=== PATIENT | female | born 1955 | race Caucasian/White ===

== ENCOUNTER 2016-06-06 13:53 | Observation (INO) ==
[2016-06-06] MEDS ORDERED: Nitroglycerin 1 INCH/GM PACKET TP ONE (14:29)
--- NOTE | 2016-06-06 14:29 | Emergency Department Note ---
Disposition Clinical Impression: Chest pain Qualifiers: Chest pain type: unspecified Qualified Code(s): R07.9 - Chest pain, unspecified Disposition: Admitted As Inpatient Condition: Good Chest Pain HPI - General Chief Complaint: ED Chest Pain Stated Complaint: CHEST PAIN Time Seen by Provider: 06/06/16 14:19 Source: patient Mode of arrival: private vehicle Limitations: no limitations Vital Signs Reviewed: Yes Nursing Notes Reviewed: Yes - History of Present Illness HPI Narrative: Patient started this morning with a mid chest discomfort. She describes this as an ache or a burn that is a 5 on a scale of 1-10. She has not found anything that makes it better or worse. It has not been exertional. She denies any diaphoresis nausea or increased shortness of breath. She states she always has shortness of breath with her COPD and asthma. She denies any lower extremity changes but does have restless leg syndrome. She has change in medication stress. She has history of present illness past history of coronary artery disease. She relates she is still having discomfort at time of presentation. Pt complaint: chest pain Onset (ago): hour(s) (5) Duration: constant Pain Location: substernal Severity: moderate Severity scale (1-10): 5 Quality: aching, other (Burning) Pain Radiation: none Improves with: nothing Worsens with: nothing Associated symptoms: Reports: dyspnea (Normal). Denies: nausea, vomiting, diaphoresis, syncope, palpitations, fever, cough, leg swelling Treatments prior to arrival chest pain: none - Related Data Home Medications Medication Instructions Recorded Confirmed Albuterol Sulfate [Albuterol PRN PRN 12/28/14 12/28/14 Sulfate] Albuterol Sulfate [Proair HFA] 0 puff IH Q4HR 12/28/14 12/28/14 Budesonide/Formoterol 80/4.5 1 puff IH BIDR 12/28/14 12/28/14 [Symbicort] Citalopram Hydrobromide 20 mg PO DAILY 12/28/14 12/28/14 [Citalopram HBr] Estradiol [Estrace] 2 mg PO DAILY 12/28/14 12/28/14 Loratadine [Claritin] 10 mg PO DAILY 12/28/14 12/28/14 Losartan/HCTZ [Hyzaar 50/12.5] 1 each PO 12/28/14 12/28/14 Lovastatin [Altoprev] 40 mg PO 12/28/14 12/28/14 Montelukast Sodium [Singulair] 10 mg PO DAILY 12/28/14 12/28/14 Tiotropium [Spiriva] 160 mcg IH DAILY 12/28/14 12/28/14 Albuterol Sulfate [Albuterol 1 puff IH BID 06/06/16 06/06/16 Inhaler] Bupropion HCl [Wellbutrin Xl] 300 mg PO DAILY 06/06/16 06/06/16 Citalopram Hydrobromide 20 mg PO DAILY 06/06/16 06/06/16 [Citalopram HBr] Esomeprazole Magnesium [Nexium] 1 mg PO DAILY 06/06/16 06/06/16 Famotidine [Heartburn Prevention] 20 mg PO BID 06/06/16 06/06/16 Loratadine [Allergy Relief] 10 mg PO DAILY 06/06/16 06/06/16 Symbicort 160/4.5 BID 06/06/16 Topiramate [Topamax] 50 mg PO BID 06/06/16 06/06/16 Trospium Chloride 20 mg PO 06/06/16 Allergies Allergy/AdvReac Type Severity Reaction Status Date / Time aspirin Allergy Swelling Verified 12/28/14 14:07 of Lip/Tongue/Throat Penicillins [PCN] Allergy Swelling Verified 12/28/14 14:07 of Lip/Tongue/Throat All systems ED: reviewed and negative except as stated. Chest Pain PMH - Past Medical History Medical history: Reports: arthritis, asthma, COPD, GERD, hyperlipidemia, hypertension, other Surgical history: Reports: cholecystectomy, hysterectomy Psychiatric history: Reports: anxiety, depression [employer] history: Reports: other - Social History Smoking Status: Current every day smoker Alcohol use: Reports: none Drug use: Reports: none Physical Exam - General Limitations: no limitations General appearance: alert, in no apparent distress - Head Head exam: atraumatic, normocephalic, normal inspection - Eye Eye exam: Present: normal appearance, PERRL, EOMI - ENT ENT exam: normal exam, normal oropharynx, mucous membranes moist - Neck Neck exam: Present: normal inspection, full ROM, trachea midline - Chest Chest inspection: Present: normal inspection, symmetric chest wall rise - Respiratory Respiratory exam: Present: normal lung sounds bilaterally. Absent: respiratory distress, wheezes, prolonged expiratory phase - Cardiovascular Cardiovascular exam: Present: regular rate, normal rhythm, normal heart sounds. Absent: tachycardia - Abdominal Exam Abdominal exam: Present: soft, Non-Tender, normal bowel sounds. Absent: tenderness, distention, guarding, rebound, rigidity - Extremities Exam Extremities exam: Present: normal inspection, full ROM, normal capillary refill. Absent: tenderness, pedal edema - Expanded Lower Extremity Exam Neurovascular/Tendon exam: Present: normal capillary refill. Absent: motor deficit, sensory deficit, tendon deficit Gait: observed and normal - Back Exam Back exam: Present: normal inspection, full ROM. Absent: tenderness, vertebral tenderness - Neurological Exam Neurological exam: Present: alert, oriented X3, normal gait - Psychiatric Psychiatric exam: Present: normal affect, normal mood. Absent: agitated, anxious - Skin Skin exam: Present: warm, dry, intact, normal color. Absent: diaphoresis, pallor Course Course Narrative: Care is discussed with the patient and with Dr. Barger. Orders are obtained for the patient's observation and we are awaiting bed placement R facility prior to transfer to the floor. Vital Signs Temperature 98 F 06/06/16 13:56 Pulse Rate 74 06/06/16 13:56 Respiratory Rate 18 06/06/16 13:56 Blood Pressure 142/103 06/06/16 13:56 O2 Sat by Pulse Oximetry 96 06/06/16 13:56 Temperature 98.1 F 06/06/16 19:25 Pulse Rate 88 06/06/16 19:25 Respiratory Rate 18 06/06/16 19:25 Blood Pressure 150/101 06/06/16 19:25 O2 Sat by Pulse Oximetry 96 06/06/16 19:25 Oxygen Delivery Oxygen Delivery Room Air Chest Pain - Differential Diagnosis Likely: stable angina, unstable angina pectoris, atypical chest pain, chest pain - Medical Records Medical records reviewed: Yes I reviewed the patient's medical records. - Lab Data Lab results reviewed: Yes I reviewed the patient's lab results. Result diagrams: 06/06/16 14:39 06/06/16 14:45 Lab Results 06/06/16 06/06/16 06/06/16 Range/Units 14:29 14:39 14:45 WBC 8.5 (4.3-11.1) K/mcL RBC 5.23 H (3.82-4.97) M/mcL Hgb 15.2 (11.5-15.4) g/dL Hct 45.0 H (35.3-44.9) % MCV 86.0 (83.0-100.0) fL MCH 29.1 (28.0-33.3) pg MCHC 33.8 (31.6-35.5) g/dL RDW 12.6 (11.5-14.5) % Plt Count 291 (140-400) K/mcL MPV 10.2 (9.4-12.4) fL Immature Gran % 0.5 (0-4) % Seg Neutrophils % 60.4 % Lymphocytes % 29.8 % Monocytes % 6.7 % Eosinophils % 1.9 % Basophils % 0.7 % Neutrophils # 5.1 (1.6-8.9) K/mcL Lymphocytes # 2.5 (0.6-4.6) K/mcL Monocytes # 0.6 (0.0-1.3) K/mcL Eosinophils # 0.2 (0.0-0.6) K/mcL Basophils # 0.1 (0.0-0.2) K/mcL PT 10.5 (9.4-12.1) Seconds INR 1.0 APTT 28.8 (26.0-36.0) Seconds Sodium (136-145) mEq/L Potassium (3.5-4.5) mEq/L Chloride (98-109) mEq/L Carbon Dioxide (19-29) mEq/L BUN (7-20) mg/dL Creatinine (0.57-1.11) mg/dL Est GFR ( Amer) (> 60) Est GFR (Non-Af Amer) (> 60) BUN/Creatinine Ratio (6-26) Glucose (70-99) mg/dL Calculated Osmolality (280-300) Calcium (8.6-10.8) mg/dL Troponin I (0-0.03) ng/mL B-Natriuretic Peptide 20 (0-100) pg/mL 06/06/16 06/06/16 Range/Units 14:45 14:45 WBC (4.3-11.1) K/mcL RBC (3.82-4.97) M/mcL Hgb (11.5-15.4) g/dL Hct (35.3-44.9) % MCV (83.0-100.0) fL MCH (28.0-33.3) pg MCHC (31.6-35.5) g/dL RDW (11.5-14.5) % Plt Count (140-400) K/mcL MPV (9.4-12.4) fL Immature Gran % (0-4) % Seg Neutrophils % % Lymphocytes % % Monocytes % % Eosinophils % % Basophils % % Neutrophils # (1.6-8.9) K/mcL Lymphocytes # (0.6-4.6) K/mcL Monocytes # (0.0-1.3) K/mcL Eosinophils # (0.0-0.6) K/mcL Basophils # (0.0-0.2) K/mcL PT (9.4-12.1) Seconds INR APTT (26.0-36.0) Seconds Sodium 142 (136-145) mEq/L Potassium 3.5 (3.5-4.5) mEq/L Chloride 110 H (98-109) mEq/L Carbon Dioxide 21 (19-29) mEq/L BUN 12 (7-20) mg/dL Creatinine 0.83 (0.57-1.11) mg/dL Est GFR ( Amer) > 60 (> 60) Est GFR (Non-Af Amer) > 60 (> 60) BUN/Creatinine Ratio 14 (6-26) Glucose 101 H (70-99) mg/dL Calculated Osmolality 294 (280-300) Calcium 8.8 (8.6-10.8) mg/dL Troponin I 0.00 (0-0.03) ng/mL B-Natriuretic Peptide (0-100) pg/mL - EKG Data EKG attestation: Yes I reviewed and interpreted this EKG. EKG shows normal: sinus rhythm, axis, intervals, QRS complexes Rate: normal (96) T wave inversions noted in: v3, v4, v5 Interpretation: no acute changes, nonspecific ST-T wave changes
[2016-06-06 14:52] LABS: Basophils # 0.1 K/mcL (0.0-0.2); Basophils % 0.7 %; Eosinophils # 0.2 K/mcL (0.0-0.6); Eosinophils % 1.9 %; Hemoglobin 15.2 g/dL (11.5-15.4); Immature Granulocytes % 0.5 % (0-4); Lymphocytes # 2.5 K/mcL (0.6-4.6); Lymphocytes % 29.8 %; Mean Corpuscular HGB Conc 33.8 g/dL (31.6-35.5); Mean Corpuscular Hemoglobin 29.1 pg (28.0-33.3); Mean Platelet Volume 10.2 fL (9.4-12.4); Monocytes # 0.6 K/mcL (0.0-1.3); Monocytes % 6.7 %; Neutrophils # 5.1 K/mcL (1.6-8.9); Platelet Count 291 K/mcL (140-400); Red Blood Count 5.23 M/mcL (3.82-4.97); Red Cell Distribution Width 12.6 % (11.5-14.5); Segmented Neutrophils % 60.4 %
[2016-06-06 15:00] LABS: Prothrombin Time 10.5 Seconds (9.4-12.1)
[2016-06-06 15:03] LABS: Activated Partial Thrombo Time 28.8 Seconds (26.0-36.0)
[2016-06-06 15:09] LABS: BUN/Creatinine Ratio 14 (6-26); Blood Urea Nitrogen 12 mg/dL (7-20); Calcium 8.8 mg/dL (8.6-10.8); Carbon Dioxide 21 mEq/L (19-29); Chloride 110 mEq/L (98-109); Glucose 101 mg/dL (70-99); Osmolality,Calculated 294 (280-300); Potassium 3.5 mEq/L (3.5-4.5); Sodium 142 mEq/L (136-145); eGFR For African Americans > 60 (> 60); eGFR For Non-African Americans > 60 (> 60)
[2016-06-06] MEDS ORDERED: 0.9 % Sodium Chloride 1,000 ML IVC SCH (16:36)
[2016-06-06] MEDS ORDERED: Ondansetron 4 MG/2 ML VIAL IVP PRN (16:36)
[2016-06-06] MEDS ORDERED: Albuterol 2.5 MG/3 ML NEBULIZER IH PRN (16:36)
[2016-06-06] MEDS ORDERED: MOM Conc 10 ML UD.LIQ PO PRN (16:36)
[2016-06-06] MEDS ORDERED: Acetaminophen 325 MG TABLET PO PRN (16:36)
[2016-06-06] MEDS ORDERED: Ipratropium/Albuterol Neb 3 ML IH SCH (16:36)
[2016-06-06] MEDS ORDERED: Naloxone 0.4 MG/ML INJ IVP PRN (16:36)
--- NOTE | 2016-06-06 17:40 | Electrocardiograph Report ---
[address] [address] Test Date: 2016-06-06 Pat Name: Xuan Lieberman Department: [id number] Room: [facility] Gender: F Slip Filler: Francisco Javier : 1955 Requested By: Abel Mills Order Number: [id number] Reading MD: Jody Gusman Measurements Intervals [place] Rate: 96 P: 40 KS: 153 QRS: 19 QRSD: 93 T: 69 QT: 361 QTc: 414 Interpretive Statements SINUS RHYTHM WITH FREQUENT ECTOPIC PREMATURE COMPLEXES NONSPECIFIC ST \T\ T-WAVE ABNORMALITY ABNORMAL RHYTHM ECG Electronically Signed On 06-06-2016 17:39:23 EDT by Jody Gusman
--- NOTE | 2016-06-06 19:18 | Internal Med History&Physical ---
Date of Encounter: 06/06/16 Time of Encounter: 18:45 Assessment and Plan (1) Chest pain Current visit: Yes Status: Acute Etiology is not obvious. Repeat cardiac enzymes have been ordered. A chest CT will be done and a d-dimer ordered. Further workup will be done as needed. Qualifiers: Chest pain type: unspecified Qualified Code(s): R07.9 - Chest pain, unspecified (2) Hypertension Current visit: Yes Status: Chronic Continue Hyzaar. I will give a dose of Norvasc since her pressure is presently elevated. Qualifiers: Hypertension type: essential hypertension Qualified Code(s): I10 - Essential (primary) hypertension (3) COPD (chronic obstructive pulmonary disease) Current visit: Yes Status: Acute Continue Spiriva, Singulair, Symbicort, and albuterol nebs Qualifiers: COPD type: unspecified COPD Qualified Code(s): J44.9 - Chronic obstructive pulmonary disease, unspecified Internal Medicine - H&P: HPI Chief complaint: Chest pain Admitted From: Home Plans for Post Hospital Care: Home History of present illness: Ms. Lieberman is a 60 year old female who states she awakened at 0900 with discomfort in her chest. She describes it as a dull midsternal pain that seems to become more sharp when she coughed. She did not have any unusual dyspnea or frequent coughing. When it persisted for a few hours she decided to come to the emergency room. She was evaluated and admitted to [facility] floor for ongoing care needs. She states the pain has not changed in location or intensity since onset. She denies previous similar pain. Her cardiovascular history is significant for hypertension but she denies NH heart failure angina DVT or pulmonary embolus. She has occasional PACs. She denies cardiac evaluation such as stress test or heart catheter. Past Med Surg Social Fam HX - Past Medical History Medical history: arthritis, asthma, COPD, GERD, hyperlipidemia, hypertension, other Psychiatric history: anxiety, depression - Past Surgical History Surgical History: cholecystectomy, hysterectomy - Social History Smoking Status: Current every day smoker Packs per day: 1.55 Smokeless Tobacco Status: No Alcohol use: none Drug use: none Internal Medicine - H&P: Meds Albuterol Sulfate [Albuterol Sulfate] PRN PRN 12/28/14 [History] Albuterol Sulfate [Proair HFA] 0 puff IH Q4HR 12/28/14 [History] Budesonide/Formoterol 80/4.5 [Symbicort] 1 puff IH BIDR 12/28/14 [History] Citalopram Hydrobromide [Citalopram HBr] 20 mg PO DAILY 12/28/14 [History] Estradiol [Estrace] 2 mg PO DAILY 12/28/14 [History] Loratadine [Claritin] 10 mg PO DAILY 12/28/14 [History] Losartan/HCTZ [Hyzaar 50/12.5] 1 each PO 12/28/14 [History] Lovastatin [Altoprev] 40 mg PO 12/28/14 [History] Montelukast Sodium [Singulair] 10 mg PO DAILY 12/28/14 [History] Tiotropium [Spiriva] 160 mcg IH DAILY 12/28/14 [History] Albuterol Sulfate [Albuterol Inhaler] 1 puff IH BID 06/06/16 [History] Bupropion HCl [Wellbutrin Xl] 300 mg PO DAILY 06/06/16 [History] Citalopram Hydrobromide [Citalopram HBr] 20 mg PO DAILY 06/06/16 [History] Esomeprazole Magnesium [Nexium] 1 mg PO DAILY 06/06/16 [History] Famotidine [Heartburn Prevention] 20 mg PO BID 06/06/16 [History] Loratadine [Allergy Relief] 10 mg PO DAILY 06/06/16 [History] Symbicort 160/4.5 BID 06/06/16 [History] Topiramate [Topamax] 50 mg PO BID 06/06/16 [History] Trospium Chloride 20 mg PO 06/06/16 [History] Allergies aspirin Allergy (Verified 12/28/14 14:07) Swelling of Lip/Tongue/Throat Penicillins [PCN] Allergy (Verified 12/28/14 14:07) Swelling of Lip/Tongue/Throat All Systems PM: A 10-system review of systems was performed and is negative for pertinent findings except as documented above in the HPI. Review of systems: Gen.: She states her weight has decreased approximately 10 pounds the past 3 months, intentionally Cardiovascular: As per history of present illness Respiratory: She has smoked since age 11 up to 3 packs per day. She has a diagnosis COPD and had oxygen in the home at one time but it has been removed. She has not had chest CT. GI: She has had cholecystectomy. She has GERD. She denies disorders of her liver or exocrine pancreas : She has had left kidney cyst surgery. She has overactive bladder and has had ureteral stents placed in the past. Neurologic: She has restless leg syndrome. She denies large distribution strokes or seizures. Endocrine: She has hyperkalemia but denies diabetes or thyroid disease Hematology/oncology: She denies blood disorders cancers or anemia Psychiatric: She has a diagnosis of depression but denies anxiety or other mental health issues Musk skeletal: She has DJD denies gout or other bone joint or muscle disorders. - Constitutional Vitals: Temp Pulse Resp BP Pulse Ox 97.9 F 83 15 137/97 98 06/06/16 16:37 06/06/16 16:37 06/06/16 16:37 06/06/16 16:37 06/06/16 16:37 Exam: Gen.: She is a well-developed well-nourished female who appears in no severe distress at present time HEENT: Head is atraumatic normocephalic. Eyes: EOMI. There is no scleral icterus. Mouth: Mucosa is moist. Neck: Supple and nontender. There is no thyromegaly or adenopathy noted. Heart: Regular without murmurs gallops or ectopics. Lungs: No wheezes or crackles are heard. Chest: She is not tender in her chest wall to palpation Abdomen: Soft and nontender. No masses or guarding are noted. Extremities: There is no cyanosis edema or clubbing noted. Dorsalis pedis and posttibial pulses are 1-2 over 2 bilaterally. Neurologic: Mental status: She is talkative and a good historian. Cranial nerves: Smile is symmetric. Forehead wrinkles bilaterally. Tongue protrudes midline. EOMI. Motor: There is no pronator drift. Cerebellar: Finger to nose is intact bilaterally. Skin: Warm and dry Internal Med - H&P Results - Labs CBC & Chem 7: 06/06/16 14:39 06/06/16 14:45
[2016-06-06] MEDS: Benzonatate 100 MG CAPSULE PO SCH (20:30)
[2016-06-06] MEDS: Topiramate 25 MG TABLET PO SCH (20:30)
[2016-06-06] MEDS: Budesonide/Formoterol 160/4.5 MDI IH SCH (23:38)
[2016-06-07 03:49] LABS: Basophils # 0.1 K/mcL (0.0-0.2); Basophils % 0.8 %; Eosinophils # 0.2 K/mcL (0.0-0.6); Eosinophils % 1.9 %; Hematocrit 41.2 % (35.3-44.9); Hemoglobin 13.9 g/dL (11.5-15.4); Immature Granulocytes % 0.4 % (0-4); Lymphocytes # 2.9 K/mcL (0.6-4.6); Lymphocytes % 36.8 %; Mean Corpuscular HGB Conc 33.7 g/dL (31.6-35.5); Mean Corpuscular Hemoglobin 28.8 pg (28.0-33.3); Mean Corpuscular Volume 85.3 fL (83.0-100.0); Mean Platelet Volume 10.2 fL (9.4-12.4); Monocytes # 0.5 K/mcL (0.0-1.3); Monocytes % 6.9 %; Neutrophils # 4.2 K/mcL (1.6-8.9); Platelet Count 248 K/mcL (140-400); Red Blood Count 4.83 M/mcL (3.82-4.97); Red Cell Distribution Width 12.3 % (11.5-14.5); Segmented Neutrophils % 53.2 %
[2016-06-07 04:02] LABS: Alanine Aminotransferase 12 Units/L (0-55); Albumin 3.6 g/dL (3.5-5.0); Albumin/Globulin Ratio 1.4 (1.1-2.2); Alkaline Phosphatase 149 Units/L (38-126); Aspartate Amino Transferase 12 Units/L (5-34); BUN/Creatinine Ratio 18 (6-26); Bilirubin,Total 0.4 mg/dL (0.2-1.2); Blood Urea Nitrogen 15 mg/dL (7-20); Calcium 9.2 mg/dL (8.6-10.8); Carbon Dioxide 21 mEq/L (19-29); Chloride 110 mEq/L (98-109); Globulin 2.6 g/dL (2.4-3.5); Glucose 106 mg/dL (70-99); Magnesium 1.9 mg/dL (1.6-2.6); Osmolality,Calculated 295 (280-300); Potassium 3.3 mEq/L (3.5-4.5); Sodium 142 mEq/L (136-145); Total Protein 6.2 g/dL (6.0-8.3); eGFR For African Americans > 60 (> 60); eGFR For Non-African Americans > 60 (> 60)
[2016-06-07] MEDS ORDERED: Loratadine 10 MG TABLET PO SCH (09:00)
[2016-06-07] MEDS ORDERED: BuPROPion XL (24 HR) 150 MG TABLET PO SCH (09:00)
[2016-06-07] MEDS: Benzonatate 100 MG CAPSULE PO SCH (09:01)
[2016-06-07] MEDS: Topiramate 25 MG TABLET PO SCH (09:02)
[2016-06-07] MEDS ORDERED: Tiotropium 18 MCG inhalation IH SCH (10:00)
[2016-06-07 10:22] VITALS: BP 138/76
[2016-06-07] MEDS: Budesonide/Formoterol 160/4.5 MDI IH SCH (10:43)
--- NOTE | 2016-06-07 11:04 | Discharge Summary ---
Date of Encounter: 06/07/16 Time of Encounter: 10:50 - Discharge Diagnosis (1) Chest pain Priority: Primary Status: Acute Qualifiers: Chest pain type: unspecified Qualified Code(s): R07.9 - Chest pain, unspecified (2) Hypertension Priority: Secondary Status: Chronic Qualifiers: Hypertension type: essential hypertension Qualified Code(s): I10 - Essential (primary) hypertension (3) COPD (chronic obstructive pulmonary disease) Priority: Secondary Status: Acute Qualifiers: COPD type: unspecified COPD Qualified Code(s): J44.9 - Chronic obstructive pulmonary disease, unspecified - Discharge Medications Home Medications: Albuterol Sulfate PRN PRN 12/28/14 [History] Albuterol Sulfate [Albuterol Inhaler] 0 puff IH Q4HR 12/28/14 [History] Budesonide/Formoterol 80/4.5 [Symbicort] 1 puff IH BIDR 12/28/14 [History] Citalopram Hydrobromide [Citalopram HBr] 20 mg PO DAILY 12/28/14 [History] Estradiol [Estrace] 2 mg PO DAILY 12/28/14 [History] Loratadine [Claritin] 10 mg PO DAILY 12/28/14 [History] Losartan/HCTZ [Hyzaar 50-12.5 Tablet] 1 each PO 12/28/14 [History] Lovastatin [Altoprev] 40 mg PO 12/28/14 [History] Montelukast Sodium [Singulair] 10 mg PO DAILY 12/28/14 [History] Tiotropium [Spiriva] 160 mcg IH DAILY 12/28/14 [History] Albuterol Sulfate [Albuterol Inhaler] 1 puff IH BID 06/06/16 [History] Bupropion HCl [Wellbutrin Xl] 300 mg PO DAILY 06/06/16 [History] Citalopram Hydrobromide [Citalopram HBr] 20 mg PO DAILY 06/06/16 [History] Esomeprazole Magnesium [Nexium] 1 mg PO DAILY 06/06/16 [History] Famotidine [Heartburn Prevention] 20 mg PO BID 06/06/16 [History] Loratadine [Allergy Relief] 10 mg PO DAILY 06/06/16 [History] Symbicort 160/4.5 BID 06/06/16 [History] Topiramate [Topamax] 50 mg PO BID 06/06/16 [History] Trospium Chloride 20 mg PO 06/06/16 [History] Allergies/Adverse Reactions: Allergies aspirin Allergy (Verified 12/28/14 14:07) Swelling of Lip/Tongue/Throat Penicillins [PCN] Allergy (Verified 12/28/14 14:07) Swelling of Lip/Tongue/Throat Procedures/tests Complete & Pending: Procedures Performed prior 72 hours Category Date Time Status CT chest w/o contrast [CT chest wo con] [CT] Routine Cat Scan 06/06/16 21:28 Completed Date of admission: 06/06/16 16:03 Primary care physician: Mulugeta Jacome MD - Patient Status Disposition: Home, Self-Care Condition: Good Overall status at discharge: patient is progressing back to baseline - Discharge Instructions Follow Up With: Mulugeta Jacome MD [Primary Care Provider] - 1 week - Diet and Activity Activity: resume usual activities as tolerated Diet: advance to your usual diet Hospital course: Ms. Lieberman is a 60 year old female who states she awakened at 0900 with discomfort in her chest. She describes it as a dull midsternal pain that seems to become more sharp when she coughed. She did not have any unusual dyspnea or frequent coughing. When it persisted for a few hours she decided to come to the emergency room. She was evaluated and admitted to [facility] for ongoing care needs. Initial orders were written by the emergency room physician. I saw her on June 06 and performed the history and physical. Repeat cardiac enzymes showed no evidence of myocardial damage. When I saw her I did not think the pain was likely to be of myocardial ischemic origin. D-dimer returned within normal range. Chest CT showed 2 nodules approximately 2 mm diameter. No other significant pathology was seen. Since she is considered high risk, a repeat CT in 12 months was recommended. I will let her PCP Dr. Jacome follow-up on this. When I saw her on June 07 the pain had lessened. I told her the etiology of the pain was not obvious. She felt stable for discharge home which I felt was reasonable. She will follow with her PCP Dr. Jacome within 1 week. Room air oximetry done prior to discharge showed satisfactory oxygenation. I encouraged her to become a nonsmoker. - Time Spent with Patient Total time spent providing and/or coordinating discharge services: - Constitutional Vitals: Temp Pulse Resp BP Pulse Ox 98.1 F 79 16 138/76 96 06/07/16 10:21 06/07/16 10:21 06/07/16 10:21 06/07/16 10:21 06/07/16 10:21
== END 2016-06-07 12:04 | disposition home or self-care (01) ==
LOC: INPPIK 13:53 → EMEROOPIK 13:53 → INPPIK 16:34
PROVIDERS: ADMIT Internal Medicine; ATTEND Internal Medicine